=== PATIENT | male | born 1925 | race African-American/Black ===

== ENCOUNTER 2016-10-02 07:22 | Outpatient (CLI) | payer OTHER ==
[2016-01-26 16:30] VITALS: BP 179/76
[2016-10-02 09:09] LABS: eGFR (African) > 60; eGFR (Non-African) > 60
== END 2016-10-02 07:23 ==
LOC: LAB 07:22
PROVIDERS: ATTEND Family Medicine
DX: E11.65 Type 2 diabetes mellitus with hyperglycemia (principal)
CPT/HCPCS: 36415; 80053; 80061; 82043; 83036

== ENCOUNTER 2017-03-29 18:02 | Emergency (ER) | payer OTHER ==
--- NOTE | 2017-03-29 18:27 | ED Physician Documentation ---
Upper Respiratory Symptoms - HISTORIAN Historian: patient - HPI Chief Complaint: Cough/ Upper Respiratory Onset: other (this morning) Context: denies: recent foreign travel, insect bite(s), tick(s), recent chemotherapy, multiple patients Associated Symptoms: productive cough, shortness of breath Further Comments: yes (89 year old male patient brought in by family for evalation of cough. Patient states he started feeling bad this morning, c/o cough, chills and SOB.) - ROS CONST/EYES: denies: weakness CVS/RESP: shortness of breath. denies: chest pain, palpitations LYMPH: denies: leg swelling, rash, swollen glands, ankle swelling GI/: other (poor po intake) NEURO/PSYCH: denies: fainting, dizziness MS/SKIN: denies: joint pain, muscle aches, rash - PAST HX Lung Disease: COPD PE Risk Factors: denies: leg swelling Other History: diabetes Type 2, other (HLD, Prostate CA, Gout) Allergies/Adverse Reactions: Allergies Allergy/AdvReac Type Severity Reaction Status Date / Time No Known Allergies Allergy Verified 03/29/17 18:48 Home Medications: Ambulatory Orders Medication Instructions Recorded Meclizine HCl 25 mg PO HS #30 tablet 01/26/16 Albuterol Sulfate [Ventolin HFN] 2.5 mg NEB Q4 PRN #25 vial 03/29/17 Azithromycin [Zithromax] 250 mg PO DAILY #6 tablet 03/29/17 Methotrexate Sodium [Rheumatrex] 2.5 mg PO WEEK 03/29/17 Naproxen [Naprosyn] 500 mg PO DAILY 03/29/17 Prednisone 30 mg PO DAILY #12 tablet 03/29/17 - SOCIAL HX Smoking History: non-smoker - FAMILY HX Family History: denies: none - VITAL SIGNS Vital Signs: Vital Signs Temp Pulse Resp BP Pulse Ox 98.3 F 86 28 H 159/66 93 03/29/17 18:06 03/29/17 19:43 03/29/17 18:06 03/29/17 18:06 03/29/17 19:43 - REVIEWED ASSESSMENTS Nursing Assessment Reviewed: Yes Vitals Reviewed: Yes Progress - Progress Progress: BBS improved after duoneb and albuterol neb. RA Sat 92-94% Reviewed discharge instructions with patient and family. Questions answered. - EKG/XRAY/CT EKG: rhythm (SR, PVC, rate 94) ED Results Lab/Radiology - Lab Results Lab Results: Lab Results 03/29/17 03/29/17 18:45 18:44 WBC 11.00 K/ul K/ul (4.00-12.00) RBC 3.24 M/ul L M/ul (3.90-5.20) Hgb 10.4 g/dL L g/dL (12.0-18.0) Hct 31.0 % L % (37.0-53.0) MCV 95.5 fl fl (80.0-100.0) MCH 32.1 pg pg (28.0-34.0) MCHC 33.6 g/dL g/dL (30.0-36.0) RDW 16.5 % H % (11.3-14.3) Plt Count 185 K/mm3 K/mm3 (130-400) Neut % (Auto) 59.3 % % (39.0-79.0) Lymph % (Auto) 23.7 % % (16.0-50.0) Tillman % (Auto) 4.7 % % (0.0-11.0) Eos % (Auto) 5.2 % % (0.0-6.8) Baso % (Auto) 3.3 H (0.0-1.5) Neut # (Auto) 6.5 # k/uL # k/uL (1.4-7.7) Lymph # (Auto) 2.6 # k/uL # k/uL (0.6-4.0) Tillman # (Auto) 0.5 # k/uL # k/uL (0.0-0.9) Eos # (Auto) 0.6 # k/uL # k/uL (0.0-0.6) Baso # (Auto) 0.4 # k/uL # k/uL (0.0-0.5) Reactive Lymphs % 3.7 % % (0.0-5.0) Reactive Lymphs # 0.4 # k/uL # k/uL (0.0-0.8) Sodium 133 mmol/L L mmol/L (136-145) Potassium 4.4 mmol/L mmol/L (3.5-5.1) Chloride 95 mmol/L L mmol/L (98-107) Carbon Dioxide 28 mmol/L mmol/L (22-30) BUN 24 mg/dL H mg/dL (9-20) Creatinine 1.30 mg/dL H mg/dL (0.66-1.25) Estimated Creat Clear 42 Est GFR ( Amer) > 60 (60 - ) Est GFR (Non-Af Amer) 55 L (60 - ) Glucose 105 mg/dL mg/dL (74-106) Calcium 9.0 mg/dL mg/dL (8.4-10.2) Total Bilirubin 0.5 mg/dL mg/dL (0.2-1.3) AST 65 U/L H U/L (15-46) ALT 69 U/L U/L (13-69) Alkaline Phosphatase 56 U/L U/L (38-126) Total Protein 6.9 g/dL g/dL (6.3-8.2) Albumin 3.8 g/dL g/dL (3.5-5.0) - Radiology Radiology Impressions: Portable view chest Clinical history: Cough and short of breath Findings: The heart size within normal limits. The pulmonary vasculature is normal. No pleural effusion, pneumothorax or alveolar consolidation. Impression: Negative portable chest Electronically signed on Mar 29, 2017 6:42:06 PM BREAKER ENGINEER by: Isma López - Orders Orders: ED Orders Category Date Time Status Continuous EKG monitoring Q30M Care 03/29/17 18:13 Active Continuous Pulse Oximetry Q30M Care 03/29/17 18:[address] IV Lock 1T Care 03/29/17 18:14 Active CHEST 1 VIEW [RAD] Stat Exams 03/29/17 18:24 Completed CBC/PLATELET/DIFF Stat Lab 03/29/17 18:45 Completed CMP Stat Lab 03/29/17 18:44 Completed INFLUENZA A&B Stat Lab 03/29/17 18:14 Ordered UA W/MICRO IF INDICATED Stat Lab 03/29/17 18:14 Ordered 0.9 % Sodium Chloride [Normal Saline] 500 ml Med 03/29/17 19:41 Discontinued IV .STK-MED 0.9 % Sodium Chloride [Normal Saline] 500 ml Med 03/29/17 19:28 Discontinued IV NOW Ipratropium/Albuterol Sulfate [Duoneb] Med 03/29/17 18:14 Discontinued 3 ml NEB STAT STA methylPREDNISolone SOD SUCC [Solu-MEDROL] Med 03/29/17 19:45 Discontinued 62.5 mg IVP NOW ONE EKG WITH COMPARISON Stat Ther 03/29/17 18:14 Ordered Upper Respiratory Symptoms - EXAM General Appearance: mild distress EENT: eyes nml inspection, nml ENT inspection, lids & conjunct. nml, PERRL, ear nml, nose nml, pharynx nml, airway nml Respiratory: no resp. distress, no pain on inspiration, speaks full sentences, wheezes (expiratory wheezes, rales in bilateral bases; RA Sat 93-94%), no pleuritic chest pain Abdomen: non-tender, no organomegaly, nml bowel sounds, no distention CVS: reg rate & rhythm, heart sounds normal, equal pulses, no murmur, no gallop , PMI nml, no JVD, no friction rub, 24 Skin: color nml, no rash, warm,dry Extremities: non-tender, normal range of motion, no evidence of injury, edema ( trace) Neuro/Psych: oriented x3, neuro intact, mood/affect nml, CN's nml as tested Discharge Clincal Impression: COPD exacerbation Prescriptions: Albuterol Sulfate [Ventolin HFN] 2.5 mg NEB Q4 PRN #25 vial PRN Reason: cough, wheezing Azithromycin [Zithromax] 250 mg PO DAILY #6 tablet Prednisone 30 mg PO DAILY #12 tablet Referrals: Ricardo Frances MD [Primary Care Provider] - 2 Days Additional Instructions: poleyard supervisor your prescriptions in the morning and start them. See your primary care doctor if your symptoms become worse or do not improve in the next 2-3 days. Cough drops as needed for cough and sore throat. Increase your fluid intake juices, hot tea, non-caffeinated beverages Vitamin C may be helpful in decreasing the length of your cold. Use a humidifier in the room where you sleep. You can also sit in a steam filled bathroom 1-2 times a day. Follow up with Dr Frances - or Thursday. Condition: Stable Disposition: HOME, SELF-CARE Decision to Admit: NO Decision Time: 19:32
[2017-03-29] MEDS: IPRATROPIUM/ALBUTEROL SULFATE 3 ML AMPUL.NEB NEB STA (18:43)
[2017-03-29 18:51] LABS: BASOPHILS % 3.3 (0.0-1.5); EOSINOPHILS % 5.2 % (0.0-6.8); MEAN CORPUSCULAR HEMOGLOBIN 32.1 pg (28.0-34.0); MEAN CORPUSCULAR VOLUME 95.5 fl (80.0-100.0); MONOCYTES % 4.7 % (0.0-11.0); NEUTROPHILS # 6.5 # k/uL (1.4-7.7)
--- NOTE | 2017-03-29 18:59 | Diagnostic Imaging Report ---
[facility] [id number] [facility].[address] [id number] Report Submission Date: Mar 29, 2017 6:42:06 PM ENVIRONMENTAL CHANGE ANALYST Patient Study Name: MAL TIDWELL Date: Mar 29, 2017 6:29:17 PM ENVIRONMENTAL CHANGE ANALYST Modality Type: CR Gender: M Description: CHEST : [birth year] Institution: [facility] Physician: VALERIY ORTEGA (DISPENSARY CLERK) - ER Portable view chest Clinical history: Cough and short of breath Findings: The heart size within normal limits. The pulmonary vasculature is normal. No pleural effusion, pneumothorax or alveolar consolidation. Impression: Negative portable chest Electronically signed on Mar 29, 2017 6:42:06 PM ENVIRONMENTAL CHANGE ANALYST by: Isma KENDALL
[2017-03-29 19:18] LABS: eGFR (African) > 60; eGFR (Non-African) 55
[2017-03-29] MEDS: 0.9 % SODIUM CHLORIDE 500 ML IV ONE ×2 (19:35→19:55)
[2017-03-29] MEDS: methylPREDNISolone SOD SUCC 125 MG/2 ML VIAL IVP ONE (20:03)
[2017-03-29] MEDS: ALBUTEROL SULFATE 2.5 MG/3 ML AMPUL.NEB NEB ONE (20:20)
[2017-03-29 20:45] VITALS: BP 142/72
== END 2017-03-29 20:30 | disposition home or self-care (01) ==
LOC: ED 18:02
DX: J44.1 Chronic obstructive pulmonary disease with (acute) exacerbation (principal)
CPT/HCPCS: 71010; 80053; 85025; 87400; 94640; 96374; 99282; 99283; J2930; J7030; S1016

== ENCOUNTER 2017-04-13 10:51 | Outpatient (CLI) | payer OTHER ==
[2017-04-13] MEDS ORDERED: ALBUTEROL SULFATE 2.5 MG/3 ML AMPUL.NEB NEB ONE (11:07)
== END 2017-04-13 10:52 ==
LOC: RT 10:51
PROVIDERS: ATTEND Physician Assistant
DX: J44.9 Chronic obstructive pulmonary disease, unspecified (principal)
CPT/HCPCS: 94060

== ENCOUNTER 2017-09-14 09:29 | Outpatient (CLI) | payer OTHER ==
[2017-09-14 10:22] LABS: eGFR (African) > 60; eGFR (Non-African) > 60
== END 2017-09-14 09:32 ==
LOC: LAB 09:29
PROVIDERS: ATTEND Family Medicine
DX: E11.65 Type 2 diabetes mellitus with hyperglycemia (principal)
CPT/HCPCS: 36415; 80053; 80061; 82043; 83036